=== PATIENT | male | born 1990 | race Caucasian/White ===

== ENCOUNTER 2020-11-09 11:43 | Emergency (ER) | payer OTHER ==
[~2020-11-09] VITALS: Ht 175.3 cm; Wt 95.0 kg
[2020-11-09 14:52] VITALS: BP 161/65
[2020-11-09] MEDS ORDERED: DIPHENHYDRAMINE 50MG CAPSULE PO ONE (15:45)
== END 2020-11-09 16:20 | disposition home or self-care (01) ==
LOC: ER 11:43
DX: T78.40XA Allergy, unspecified, initial encounter (principal); Z88.0 Allergy status to penicillin; X58.XXXA Exposure to other specified factors, initial encounter
CPT/HCPCS: 99282; Q0163